=== PATIENT | female | born 1985 | race Caucasian/White ===

== ENCOUNTER 2020-03-25 20:28 | Emergency (ER) | payer MEDICAID ==
[~2020-03-25] VITALS: Ht 170.2 cm; Wt 68.0 kg
[2020-03-25] MEDS ORDERED: normal saline 1000ML IV soln IVB ONE (21:05)
--- NOTE | 2020-03-25 21:17 | NUR ---
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
[2020-03-25 21:23] LABS: CLARITY,URINE CLEAR (Clear); COLOR,URINE YELLOW (Yellow); GLUCOSE, URINE NEGATIVE (Neg); KETONES,URINE NEGATIVE (Neg); LEUKOCYTE ESTERASE ,URINE NEGATIVE (Neg); NITRITES, URINE POSITIVE (Neg); OCCULT BLOOD,URINE NEGATIVE (Neg); PROTEIN,URINE NEGATIVE (Neg); UROBILINOGEN,URINE 0.2 E.U/dL (0.2-1.0)
[2020-03-25 21:29] LABS: UA COLLECTION TYPE NON-SPECIFIED
[2020-03-25 21:30] LABS: BACTERIA,URINE 4+ /HPF (Neg); RBC,URINE NONE SEEN /HPF (0-2); SQUAMOUS EPITHELIAL CELL,UR FEW /LPF (FEW); WBC,URINE 0-4 /HPF (0-4)
[2020-03-25 21:49] LABS: ALANINE AMINOTRANSFERASE 22 U/L (12-78); ALBUMIN 3.7 G/DL (3.4-5.0); ALBUMIN/GLOBULIN RATIO 0.9 (1.1-1.5); ALKALINE PHOSPHATASE 115 IU/L (46-116); ANION GAP 10 (8-16); ASPARTATE AMINO TRANSFERASE 25 U/L (10-37); BILIRUBIN,TOTAL 0.3 MG/DL (0.1-1.0); BLOOD UREA NITROGEN 15 MG/DL (7-18); CALCIUM 8.7 MG/DL (8.5-10.1); CHLORIDE 105 MMOL/L (99-107); GLUCOSE 112 MG/DL (70-104); POTASSIUM 3.7 MMOL/L (3.5-5.1); SODIUM 139 MMOL/L (135-145); TOTAL CARBON DIOXIDE 23.7 MMOL/L (24-32); TOTAL PROTEIN 7.7 G/DL (6.4-8.2); eGFR 63 ML/MIN
[2020-03-25 21:52] LABS: TROPONIN I < 0.04 NG/ML (0.0-0.05)
[2020-03-25 22:15] LABS: BASOPHILS # (AUTO) 0.1 X10'3 (0-0.2); BASOPHILS % (AUTO) 1.5 % (0-1); EOSINOPHILS # (AUTO) 0.1 X10'3 (0-0.9); EOSINOPHILS % (AUTO) 1.8 % (0-6); HEMATOCRIT 23.8 % (35.0-45.0); LYMPHOCYTES # (AUTO) 2.2 X10'3 (1.1-4.8); LYMPHOCYTES % (AUTO) 29.1 % (21-51); MEAN CORPUSCULAR HEMOGLOBIN 13.8 PG (27.0-31.0); MEAN CORPUSCULAR VOLUME 51.4 FL (78-98); MONOCYTES # (AUTO) 0.6 X10'3 (0-0.9); MONOCYTES % (AUTO) 7.5 % (2-12); NEUTROPHILS # (AUTO) 4.6 X10'3 (1.8-7.7); NEUTROPHILS % (AUTO) 60.1 % (42-75); RED BLOOD COUNT 4.64 X10'6 (4.20-5.60); RED CELL DISTRIBUTION WIDTH 20.3 % (11.5-14.5); WHITE BLOOD COUNT 7.7 X10'3 (4.5-11.0)
--- NOTE | 2020-03-25 22:16 | NUR ---
LAB NOTIFYING OF HGB 6.4; WILL UPDATE ED MD ARPIT SANCHEZ
[2020-03-25 22:17] LABS: HEMOGLOBIN 6.4 g/dl (12.0-16.0)
--- NOTE | 2020-03-25 22:19 | NUR ---
ARPIT SANCHEZ REQUESTING RE-DRAW OF CBC
[2020-03-25 22:33] LABS: PLATELET ESTIMATE NORMAL
[2020-03-25 22:34] LABS: ANISOCYTOSIS 3+; ELLIPTOCYTES 2+; HYPOCHROMASIA 2+; MICROCYTOSIS 2+; ROULEAUX 1+
[2020-03-25 22:38] LABS: BASOPHILS # (AUTO) 0.1 X10'3 (0-0.2); EOSINOPHILS # (AUTO) 0.2 X10'3 (0-0.9); EOSINOPHILS % (AUTO) 2.3 % (0-6); HEMATOCRIT 23.1 % (35.0-45.0); MEAN CORPUSCULAR HEMOGLOBIN 14.3 PG (27.0-31.0); MEAN CORPUSCULAR HGB CONC 27.7 g/dL (33.0-36.5); MONOCYTES # (AUTO) 0.6 X10'3 (0-0.9); RED BLOOD COUNT 4.48 X10'6 (4.20-5.60)
[2020-03-25 22:40] LABS: BASOPHILS % (AUTO) 1.1 % (0-1); LYMPHOCYTES # (AUTO) 2.4 X10'3 (1.1-4.8); LYMPHOCYTES % (AUTO) 31.4 % (21-51); MEAN CORPUSCULAR VOLUME 51.6 FL (78-98); MEAN PLATELET VOLUME 8.8 FL (7.4-10.4); MONOCYTES % (AUTO) 7.2 % (2-12); NEUTROPHILS # (AUTO) 4.5 X10'3 (1.8-7.7); RED CELL DISTRIBUTION WIDTH 20.6 % (11.5-14.5); WHITE BLOOD COUNT 7.8 X10'3 (4.5-11.0)
[2020-03-25 22:42] LABS: HEMOGLOBIN 6.4 g/dl (12.0-16.0)
--- NOTE | 2020-03-25 22:42 | NUR ---
PER Gail STERN RN; REPEAT CBC IS 6.4. WILL UPDATED ED PROVIDER ARPIT SANCHEZ
[2020-03-25 22:43] LABS: PLATELET COUNT 350 X10'3 (140-440)
--- NOTE | 2020-03-25 22:44 | NUR ---
LUCY DICKERSON INFORMED OF CRITICAL HGB 6.4 ARPIT SANCHEZ HAS LEFT.
[2020-03-25] MEDS ORDERED: FERR-29 PO (23:56)
[2020-03-26 00:04] VITALS: BP 109/77
== END 2020-03-26 00:03 | disposition home or self-care (01) ==
LOC: ER 20:29
DX: D64.9 Anemia, unspecified (principal); F41.9 Anxiety disorder, unspecified; F17.200 Nicotine dependence, unspecified, uncomplicated; F15.90 Other stimulant use, unspecified, uncomplicated; R42 Dizziness and giddiness; Z56.0 Unemployment, unspecified
CPT/HCPCS: 36415; 71046; 80053; 81001; 84484; 85025; 87077; 87088; 87186; 96360; 96361; 99285; J7030

== ENCOUNTER 2025-10-14 16:16 | Emergency (ER) | payer MEDICAID ==
[~2025-10-14] VITALS: Ht 171.4 cm; Wt 75.0 kg
[~2025-10-14 16:16] MED LIST: FERR-29 PO
--- NOTE | 2025-10-14 16:35 | ELECTROCARDIOGRAPH REPORT ---
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 LESTER Martinez Measurements Intervals [place] Rate: 88 P: 43 MI: 162 QRS: 87 QRSD: 79 T: 15 QT: 355 QTc: 430 Interpretive Statements Sinus rhythm Baseline wander in lead(s) II,V5,V6 Electronically Signed On 10-15-2025 18:42:[address] LESTER Martinez Please click the below link to view image of tracing.
--- NOTE | 2025-10-14 17:07 | RADIOLOGY REPORT ---
CHEST RADIOGRAPH Indication: Stroke Alert Technique: Single frontal view of the chest was obtained. Comparison: None Findings: No focal consolidation. No significant pleural effusion. No pneumothorax. Nonenlarged cardiomediastinal silhouette. IMPRESSION: No acute pulmonary process.
--- NOTE | 2025-10-14 17:14 | RADIOLOGY REPORT ---
Procedure: CT CT STROKE [facility] Study Date and Requested Time: 10/14/2025 04:45 PM History: Stroke Alert Comparison: None Dose: CTDI: 59.98 mGy DLP: 981.5 mGycm Technique: Multiplanar images obtained through the brain without intravenous contrast. Findings: Normal brain volume and formation. No hemorrhages, masses, mass effect, midline shift, herniation or cytotoxic edema following a large vascular territory. No intra-axial or extra-axial fluid collections. No evidence of hydrocephalus. The basal cisterns are patent. The pituitary gland, sella and parasellar regions are unremarkable. The cerebellar tonsils are in normal position. The cerebellum is unremarkable. The orbits and globes are unremarkable. The paranasal sinuses and mastoids are clear. There are no worrisome calvarial lesions. Impression: No evidence of acute intracranial abnormality. Critical Result: Stroke Alert Findings discussed with Dr. Mcghee at 10/14/2025 05:10 PM, and acknowledged receipt and understanding of the findings. ..
[2025-10-14 17:15] LABS: CREATININE 0.80 MG/DL (0.40-0.90); TOTAL CARBON DIOXIDE 24.3 MMOL/L (24-32); eCRCL 92 ML/MIN; eGFR 79 ML/MIN
[2025-10-14 17:19] LABS: APTT 26 SECONDS (22-32); INR 1.0 INR
[2025-10-14 18:28] LABS: MEAN PLATELET VOLUME 8.4 FL (7.4-10.4); RED CELL DISTRIBUTION WIDTH 19.1 % (11.5-14.5)
[2025-10-14 18:48] LABS: PLATELET ESTIMATE NORMAL
[2025-10-14 18:51] LABS: ELLIPTOCYTES FEW
[2025-10-14 19:12] VITALS: BP 114/68; PULSE 79; RESP 16; TEMP 98.5; O2SAT 97
--- NOTE | 2025-10-15 00:54 | Physician Documentation ---
History of Present Illness ~ Chief Complaint: Stroke Alert Stated Complaint: SOB/L SIDE FACE NUMBNESS Time Seen by MD: 16:37 Primary Medical Doctor: KAYLEY Mode of Arrival: POV HPI Patient is a very pleasant 40-year-old female that presents to the emergency department for evaluation of numbness tingling weakness lethargy times several days. Patient reports she has a previous history of anemia associated with iron deficiency. Patient reports she has had blood transfusions during her and required iron infusion therapy before. Denies headaches syncopal episodes chest pain shortness of breath at this time. Patient denies fever chills nausea vomiting diarrhea at this time. No other symptoms reported at this time. Patient was initially called a stroke alert due to concern for numbness and tingling in the left side stroke alert was canceled but patient underwent thorough workup as a precaution. Medication Reconciliation Allergies: Coded Allergies: No Known Allergies (Unverified , 03/25/20) Scheduled Ferrous Sulfate (Iron), 1 TAB PO Q12H Past Medical History Past Medical History: Anxiety Past Surgical History: no surgical history Alcohol Use: None Drug Use: methamphetamine Lives with: Family Lives In: Home Occupation: unemployed Review of Systems ROS As stated above in the HPI, otherwise all systems are reviewed and negative. Physical Exam Vital Signs: Temperature: 98.5, Source: Oral, Heart Rate: 79, Respiratory Rate: 16, BP: 114/68, Pulse Oximetry: 97, Weight: 75.000 Oxygen Flow Rate: 0 General Appearance VITALS: Reviewed and as above. GENERAL: Alert, no apparent distress. HEENT: Normocephalic, atraumatic, PERRL, EOMI, dry mucosa, no erythema RESPIRATORY: Lungs clear, normal breath sounds, no respiratory distress. CHEST: No accessory muscle use, no retractions CV: Regular rate, rhythm, no edema, no murmur, No: JVD GI: Soft, non-tender, bowels sounds present, no rebound, guarding, or rigidity BACK: No CVA tenderness, or swelling MUSCULOSKELETAL No deformities, no edema SKIN: Warm and dry, no rash NEURO: Oriented x4, No motor or sensory deficit PSYCH: Normal mood and affect, no agitation Progress Results/Orders Results/Orders Orders - RAIZA YEBOAH ASPHALT DAUBER Monitor (10/14/25 16:33) 2 Large Bore Ivs (10/14/25 16:33) Chest,Single View (10/14/25 16:33) Accucheck (10/14/25 16:33) Ct Stroke Alert (10/14/25 16:50) Hs Troponin I W Calculations (10/14/25 18:33) Hs Troponin I W Calculations (10/14/25 19:33) [place] [facility] Consult (10/14/25 16:33) Pathology Review (10/14/25 18:17) Completed Orders - RAIZA YEBOAHP Electrocardiogram (10/14/25 16:33) Chest,Single View (10/14/25 16:33) Ct Stroke Alert (10/14/25 16:50) BMP (10/14/25 16:33) PTT (10/14/25 16:33) Pt Inr (10/14/25 16:33) Hs Troponin I W Calculations (10/14/25 16:33) Vital Signs 10/14/25 10/14/25 10/14/25 10/14/25 16:23 17:16 19:07 19:12 Temp 98.0 98.5 98.5 Pulse 63 75 79 Resp 14 21 16 B/P (MAP) 119/77 108/61 (77) 114/68 (83) Pulse Ox 99 97 97 O2 Flow Rate 0 0 0 Laboratory Tests Test 10/14/25 16:52 10/14/25 17:12 10/14/25 18:17 CBC Comment Prothrombin Time 10.6 INR International Normalized Ratio 1.0 Activated Partial Thromboplast Time 26 Coagulation Comments Sodium Level 142 Potassium Level 3.9 Chloride Level 108 H Carbon Dioxide Level 24.3 Anion Gap 10 Blood Urea Nitrogen 14 Creatinine 0.80 Estimated GFR/1.73 m2 79 BUN/Creatinine Ratio 17.5 Glucose Level 98 Calcium Level 8.3 L Troponin I High Sensitivity < 4 L Troponin I High Sens Percent Delta Troponin I Hi Sens Absolute Change Albumin 3.7 Chemistry Comments White Blood Count 5.7 Red Blood Count 4.36 Hemoglobin 7.5 L Hematocrit 24.6 L Mean Corpuscular Volume 56.4 L Mean Corpuscular Hemoglobin 17.3 L Mean Corpuscular Hemoglobin Concent 30.6 L Red Cell Distribution Width 19.1 H Platelet Count 257 Mean Platelet Volume 8.4 Neutrophils (%) (Auto) 61.0 Lymphocytes (%) (Auto) 30.2 Monocytes (%) (Auto) 6.4 Eosinophils (%) (Auto) 1.4 Basophils (%) (Auto) 1.0 Neutrophils # (Auto) 3.5 Lymphocytes # (Auto) 1.7 Monocytes # (Auto) 0.4 Eosinophils # (Auto) 0.1 Basophils # (Auto) 0.1 Platelet Estimate Normal Red Blood Cell Morphology Perf Basophilic Stippling Anisocytosis 2+ Microcytosis 3+ Target Cells Few Tear Drop Cells Few Elliptocytes Few Medical Decision Making Additional information obtaine: other Findings Number of Diagnoses/Management Options: Moderate Complexity The patient is a 40-year-old female presenting with several days of numbness, tingling, weakness, and lethargy. Initial presentation raised concern for acute stroke given left-sided neurological symptoms, prompting stroke alert activ ation. However, CT imaging was negative for acute cerebrovascular event. Chest X-ray was unremarkable. Laboratory evaluation revealed severe iron deficiency anemia with hemoglobin 7.5 g/dL and hematocrit 22%. Given the patient's known history of iron deficiency anemia requiring blood transfusions during and previous iron infusion therapy, this represents recurrent severe iron deficiency anemia. The presenting neurological symptoms (numbness, tingling, weakness) and constitutional symptoms (lethargy) are consistent with manifestations of severe anemia. Differential diagnosis considered included: Acute cerebrovascular accident (ruled out by negative CT) Severe iron deficiency anemia with neurological manifestations (confirmed) Cardiac or pulmonary pathology (no supporting symptoms; chest X-ray negative) Amount and/or Complexity of Data: Moderate Complexity Data reviewed and analyzed: CT scan of head (negative for acute stroke) Chest X-ray (negative) Complete blood count showing hemoglobin 7.5 g/dL, hematocrit 22% Patient's medical history including prior iron deficiency anemia requiring transfusions and iron infusions Assessment of current symptoms and their relationship to severe anemia The laboratory findings are diagnostic of severe iron deficiency anemia. In the context of her history, the most likely etiology is ongoing blood loss, potentially from heavy menstrual bleeding, which affects 38% of reproductive-age women with iron deficiency. Additional evaluation for gastrointestinal blood loss and malabsorption should be pursued in outpatient follow-up, particularly given recurrent severe anemia. Risk of Complications/Morbidity/Mortality: Moderate Risk The patient presents with hemoglobin of 7.5 g/dL, which represents severe anemia. However, she is hemodynamically stable without chest pain, shortness of breath, or syncope. Red blood cell transfusion is not indicated in this hemodynamically stable patient, as restrictive transfusion strategies (threshold 7-8 g/dL) are appropriate for stable patients, and transfusions should be used rarely for hemodynamically stable patients with iron deficiency irrespective of hemoglobin levels. Given the severity of anemia (hemoglobin 7.5 g/dL), the patient's history of requiring transfusions and iron infusions, and her inability to remain for extended treatment or close follow-up, intravenous iron therapy is indicated as first-line treatment. Intravenous iron is specifically recommended for patients with zjhartui-wo-yqvrry iron deficiency anemia and is more effective than oral iron alone in achieving rapid hematologic response. Modern IV iron formulations can provide complete iron replacement in a single 15-60 minute infusion and are safe with severe infusion reactions affecting less than 1% of patients. The patient was unable to stay for extended treatment due to lack of childcare. This social barrier to care increases risk of treatment non-adherence and delayed follow-up, further supporting the use of single-dose IV iron therapy that can be administered rapidly in the emergency department setting. Medical Decision Making After discussion with the patient regarding her laboratory findings, severe iron deficiency anemia, and treatment options, the following plan was implemented: Intravenous iron therapy initiated with single-dose, high-dose formulation (ferric carboxymaltose or ferric derisomaltose) to provide rapid iron repletion Oral iron supplementation prescribed (ferrous sulfate 325 mg daily or every other day) to continue iron repletion and maintain iron stores Outpatient follow-up arranged with primary care physician within 2 weeks to: Assess hemoglobin response (expected increase of 1 g/dL within 2 weeks) Evaluate for underlying cause of recurrent iron deficiency Consider referral for gynecologic evaluation for potential heavy menstrual bleeding Consider gastrointestinal evaluation if no clear gynecologic source identified Patient education provided regarding: Diagnosis of severe iron deficiency anemia Importance of oral iron adherence Warning signs requiring immediate return (severe weakness, chest pain, shortness of breath, syncope) Need for close outpatient follow-up Red blood cell transfusion was not administered given hemodynamic stability and availability of effective alternative therapy with IV iron. The patient's neurological symptoms are attributed to severe anemia rather than acute cerebrovascular pathology based on negative imaging and constellation of symptoms consistent with anemia. Overall Medical Decision Making Complexity: Moderate Differential Dx:Considerations: Include: Sanchez's Palsey, CVA, Delirium tremens, DKA, Drug overdose, Electrolyte imbalance, Encephalopathy, Hypoxemia, Hypoglycemia, Mass lesion, Respiratory failure, Subarachnoid Hemorrhage, TIA, Other Departure Disposition: 01 HOME / SELF CARE / HOMELESS Impression: Primary Impression: Iron deficiency anemia Additional Impression: Anemia Condition: Stable Discharge Instructions: Iron Deficiency Anemia, Adult Additional Instructions: Your Diagnosis: You have severe iron deficiency anemia. This means your blood d oes not have enough iron, which has caused your hemoglobin (the part of blood that carries oxygen) to drop to a very low level of 7.5 g/dL. Normal hemoglobin for women is 12 g/dL or higher. Why This Is Serious: Your low hemoglobin level is causing your symptoms of numbness, tingling, weakness, and feeling very tired. Your body is not getting enough oxygen, which can be dangerous if not treated. CRITICAL: You Must Return for Treatment You MUST return to the emergency department tomorrow morning or see your primary care doctor immediately to receive treatment for your anemia. This is not optional. Your hemoglobin level is dangerously low and requires urgent treatment. Treatment You Need: You need intravenous (IV) iron therapy, which is iron given through a vein. This is the best treatment for you because: You have severe anemia that needs rapid treatment You have told us that oral iron pills make you sick IV iron works faster and better than pills for severe anemia like yours The treatment takes 15-60 minutes and can be given in one visit Modern IV iron is very safe, with serious reactions happening in less than 1% of patients What to Expect from Treatment: Your hemoglobin should start to improve within 2 weeks of receiving IV iron You should notice your symptoms (tiredness, weakness, numbness) getting better as your hemoglobin rises You will need blood tests in 2-4 weeks to check if the treatment is working Iron Supplements at Home: While oral iron pills have made you sick before, your doctor may prescribe a lower dose or [id number] dosing, which is easier to tolerate and may work just as well. If prescribed: Take iron pills on an empty stomach if possible, or with food if they upset your stomach Taking vitamin C (like orange juice) with your iron can help your body absorb it better Avoid coffee, tea, or calcium (like milk) within 1 hour of taking iron, as these can block iron absorption Finding the Cause: Your doctors need to find out why you keep losing iron. Common causes include: Heavy menstrual periods (very common in women your age) Bleeding in the stomach or intestines Problems absorbing iron from food You will need additional testing to find the cause, which may include blood tests and possibly procedures to look at your stomach and intestines. WARNING SIGNS - Return to the Emergency Department Immediately If You Experience: Severe weakness or feeling like you might pass out Chest pain or pressure Shortness of breath or trouble breathing Fast or irregular heartbeat Dizziness or fainting Confusion or difficulty thinking clearly Any new or worsening symptoms Follow-Up Care: Return to the emergency department tomorrow morning for IV iron treatment Schedule an appointment with your primary care doctor within 2 weeks You will need blood tests to monitor your hemoglobin response You may need referral to specialists to find the cause of your anemia Important Reminders: Your hemoglobin of 7.5 g/dL is dangerously low and requires immediate treatment Without treatment, your symptoms will get worse and you are at risk for serious complications IV iron therapy is safe, effective, and can be given quickly Finding and treating the cause of your anemia is essential to prevent it from happening again Questions or Concerns: If you have any questions or your symptoms worsen before tomorrow, return to the emergency department immediately or call 911. You have demonstrated clear understanding of the serious nature of your laboratory results and the absolute necessity to return for treatment. Your health and safety depend on receiving prompt treatment for your severe anemia. Referrals: NO PRIMARY CARE PROVIDER (PCP) Education Educated: Patient Educated regarding: diagnosis, treatment, need for follow up Signature Scribe Signature: A Attestation: Scribed for Raiza Yeboah by MARTIN Tillman . 10/15/25 01:06 RAIZA YEBOAH Oct 15, 2025 00:54
== END 2025-10-14 20:09 | disposition home or self-care (01) ==
LOC: ER 16:16
DX: D50.9 Iron deficiency anemia, unspecified (principal); R53.83 Other fatigue; R20.2 Paresthesia of skin; R53.1 Weakness; R06.02 Shortness of breath; F15.90 Other stimulant use, unspecified, uncomplicated
CPT/HCPCS: 36415; 71045; 80048; 84484; 85008; 85025; 85610; 85730; 93005; 99285

== ENCOUNTER 2025-10-15 09:36 | Emergency (ER) | payer MEDICAID ==
[~2025-10-15] VITALS: Ht 170.2 cm; Wt 77.4 kg
[2025-10-15 11:46] VITALS: BP 120/67; PULSE 76; RESP 20; TEMP 97.6; O2SAT 100
[2025-10-15] MEDS: iron sucrose complex injection 200 MG in normal saline 100ml IV soln 100 ML IV ONE (12:03)
--- NOTE | 2025-10-15 12:39 | Physician Documentation ---
History of Present Illness ~ General Chief Complaint: See Chief Complaint Stated Complaint: ABNORMAL LABS Time Seen by MD: 10:32 OK to notify your PCP?: Yes [facility] Source: patient, RN/MD Mode of Arrival: POV History of Present Illness Initial Comments Patient is seen today with complaints of low hemoglobin from lab work yesterday. Patient's hemoglobin was 7.5 yesterday. Patient was instructed to come back here for iron infusion treatment. Patient states she has history of repeat and recurrent low hemoglobin and low iron likely or possibly from heavy menstrual cycles. Patient has no other concern or complaint at this time. She denies any chest pain or shortness of breath or abdominal pain or nausea, vomiting, diarrhea. She states she does feel tired. Medication Reconciliation Allergies: Coded Allergies: No Known Allergies (Unverified , 10/15/25) Scheduled Ferrous Sulfate (Iron), 1 TAB PO Q12H Past Medical History Past Medical History: Anxiety Past Surgical History: no surgical history Last Menstrual Period: Oct 14, 2025 Alcohol Use: None Drug Use: methamphetamine Lives with: Family Lives In: Home Occupation: unemployed Review of Systems Constitutional: Denies: chills, fever, weakness Eyes: Denies: pain, blurred vision ENT: Denies: ear pain, nose pain, throat pain, mouth pain Respiratory: Denies: cough, shortness of breath Cardiovascular: Denies: chest pain, palpitations Gastrointestinal: Denies: abdominal pain, nausea, vomiting Genitourinary: Denies: burning, dysuria Female Genitalia: Denies: vaginal discharge, pelvic pain Neurological: Denies: headache, dizziness Musculoskeletal: Denies: pain, swelling Integumentary: Denies: rash, lesions Allergic/Immunologic: Denies: hives, itching Hematologic/Lymphatic: Denies: no symptoms reported Psychiatric: Denies: depression, anxiety Physical Exam Physical Exam Vital Signs: Temperature: 97.6, Source: Temporal, Heart Rate: 76, Respiratory Rate: 20, BP: 120/67, Pulse Oximetry: 100, Weight: 77.400 Oxygen Flow Rate: 0 Physical Exam General: Awake and Alert, no acute distress. HEENT: Conjunctiva pink, Sclera clear, Mucus Membranes moist. Neck: Supple without masses and tenderness. Resp: Unlabored. Lungs clear to auscultation bilaterally. Heart: Regular Rate and rhythm, normal S1 and S2 without murmur, rub or gallop. Abdomen: Soft and non tender no organomegaly Extremities: No cyanosis,clubbing or edema. Skin: Warm and Dry. Progress Results/Orders Results/Orders Completed Orders - JAC VARGAS Iron Sucrose Complex Injection (Venofer (10/15/25 11:32) Medications Received in ER Medications (Trade) Dose Ordered Sig/Justo Route PRN Reason Start Time Stop Time Status Last Admin Dose Admin Iron Sucrose 200 mg/Sodium Chloride 110 ml @ 150 mls/hr ONCE ONCE IV 10/15/25 11:32 10/15/25 12:15 DC 10/15/25 12:03 150 MLS/HR Vital Signs 10/15/25 10/15/25 10/15/25 09:55 10:33 11:46 Temp 97.8 97.6 Pulse 69 76 Resp 18 20 20 B/P (MAP) 106/65 120/67 (84) Pulse Ox 99 100 O2 Flow Rate 0 Medical Decision Making Additional information obtaine: N/A Findings Patient is seen today with complaints of low hemoglobin from lab work yesterday. Patient's hemoglobin was 7.5 yesterday. Patient was instructed to come back here for iron infusion treatment. Patient states she has history of repeat and recurrent low hemoglobin and low iron likely or possibly from heavy menstrual cycles. Patient has no other concern or complaint at this time. She denies any chest pain or shortness of breath or abdominal pain or nausea, vomiting, diarrhea. She states she does feel tired. Patient was given iron infusion IV and will follow up in 2-3 days for repeat CBC. And possible repeat iron infusion. Any worsening, concerning or changing symptoms. Differential Diagnosis Menorrhagia, dysmenorrhea, anemia, low iron, iron-deficiency anemia. Departure Disposition: HOME / SELF CARE / HOMELESS Impression: Primary Impression: Iron deficiency anemia Qualified Codes: D50.0 - Iron deficiency anemia secondary to blood loss (chronic) Condition: Improved Discharge Instructions: Iron Deficiency Anemia, Adult, [id number] Additional Instructions: Patient was given iron infusion IV and will follow up in 2-3 days for repeat CBC. And possible repeat iron infusion. Any worsening, concerning or changing symptoms. Referrals: NO PRIMARY CARE PROVIDER (PCP) Signature Scribe Signature: No scribe Attestation: No scribe JAC VARGAS Oct 15, 2025 12:39
== END 2025-10-15 12:52 | disposition home or self-care (01) ==
LOC: ER 09:37
DX: D50.0 Iron deficiency anemia secondary to blood loss (chronic) (principal)
CPT/HCPCS: 96365; 99285; J1756